=== PATIENT | female | born 1970 | race Caucasian/White ===

== ENCOUNTER 2021-07-13 11:44 | Emergency (ER) | payer OTHER, SELFPAY ==
[2021-07-13 12:06] VITALS: BP 121/74; PULSE 81; RESP 18; TEMP 36.4; O2SAT 98
--- NOTE | 2021-07-13 13:27 | ED.URI ---
HPI - URI/Sore Throat General Chief Complaint: Upper Respiratory Infection Stated Complaint: sore throat sob fever Source: patient and RN notes reviewed Mode of arrival: ambulatory History of Present Illness HPI Narrative: This is a 51-year-old female who presented to urgent care with complaints of a sore throat, cough, fatigue, shortness of breath and congestion. According to patient she was unable to smoke her cigarettes due to shortness of breath. She did not do anything at home to relieve her symptoms. She has had her symptoms since Tuesday. The patient denies CP, palpitation, extremity numbness, lightheadedness, dizziness, constipation, diarrhea, chills, or fever. Related Data Home Medications Medication Instructions Recorded Confirmed atenolol 25 mg PO BID 07/13/21 07/13/21 atorvastatin 10 mg PO DAILY 07/13/21 07/13/21 citalopram 40 mg PO DAILY 07/13/21 07/13/21 empagliflozin [Jardiance] 10 mg PO DAILY 07/13/21 07/13/21 metformin 1,000 mg PO BID 07/13/21 07/13/21 Allergies Allergy/AdvReac Type Severity Reaction Status Date / Time No Known Allergies Allergy Verified 07/13/21 12:22 Review of Systems Review of Systems: A 14 organ system Review of Systems was performed and pertinent positives included in the HPI, otherwise remaining ROS is negative. [facility] Family History Family History (Updated 07/13/21 @ 13:28 by PATO Wright-Choco) Other Family history non-contributory Exam Narrative: GENERAL: This is a well-nourished, well-developed patient, in no apparent distress. HEAD: normocephalic, atraumatic. EYES: PERRL. Sclera clear/white. Vision is grossly intact. EARS: External ears normal, auditory canals clear and without drainage, TMs normal without perforation. Hearing grossly intact. NOSE: External nose normal with no obvious nasal discharge, nares without redness, no rhinorrhea. THROAT: Mucous membranes moist, posterior pharynx clear. NECK: Neck supple, non-tender without lymphadenopathy, masses or thyromegaly. CARDIOVASCULAR: Regular rate and rhythm without murmurs, gallops, or rubs. RESPIRATORY: Clear to auscultation. Breath sounds equal bilaterally. No wheezes, rales, or rhonchi. GASTROINTESTINAL: Abdomen soft, non-tender, nondistended. Bowel sounds are active. No hepato-splenomegaly, or palpable masses. No guarding. SKIN: warm, intact with no suspicious lesions or rash, good texture and turgor. NEURO: awake, alert, and oriented to person, place and time. There were no obvious focal neurologic abnormalities. Steady gait EXTREMITIES: Normal range of motion. No edema. No calf tenderness. Negative Homans sign bilaterally. BACK: Nontender without deformity or crepitance. No flank tenderness. Course Course Emergency Course: Patient will be treated for viral syndrome with Tessalon Perles, guaifenesin, albuterol, Symbicort, and Medrol pack Vital Signs Vital signs: Vital Signs Temperature 97.6 F 07/13/21 12:06 Pulse Rate 81 07/13/21 12:06 Respiratory Rate 18 07/13/21 12:06 Blood Pressure 121/74 07/13/21 12:06 Pulse Oximetry 98 07/13/21 12:06 Temperature 97.6 F 07/13/21 12:06 Pulse Rate 81 07/13/21 12:06 Respiratory Rate 18 07/13/21 12:06 Blood Pressure 121/74 07/13/21 12:06 Pulse Oximetry 98 07/13/21 12:06 MDM - URI/Sore Throat Differential Diagnosis Differential diagnosis: Likely upper respiratory infection, sinusitis, viral infection and bronchitis Discharge Plan Discharge Clinical Impression: Viral infection Patient Disposition: Home, Self-Care Condition: Stable Instructions: Antibiotic Form, Viral Syndrome (ED) Additional Instructions: This is likely viral illness, no antibiotic is needed at this time. Treatment is aimed toward your specific symptoms. You must treat your symptoms in order to feel better while the virus runs it's course. Recommend antihistamine such as Benadryl at night time and Claritin/Zyrtec/Mary during the day Use
== END 2021-07-13 13:31 | disposition home or self-care (01) ==
PROVIDERS: Emergency Provider Nurse Practitioner; PCP Internal Medicine
DX: B34.9 Viral infection, unspecified (principal); Z20.822 Contact with and (suspected) exposure to COVID-19
CPT/HCPCS: 99213; G0463

== ENCOUNTER 2021-10-28 11:11 | Emergency (ER) | payer OTHER, SELFPAY ==
--- NOTE | 2021-10-28 11:14 | ED.URI ---
HPI - URI/Sore Throat General Chief Complaint: Upper Respiratory Infection Stated Complaint: allergies, yellow mucus out of nose Time Seen by Provider: 10/28/21 11:29 Source: patient and RN notes reviewed Mode of arrival: ambulatory Limitations: no limitations History of Present Illness HPI Narrative: 51-year-old female presents with concern for persistent cough, bilateral ear pressure, purulent nasal drainage. Reports she has a history of allergies and has started taking her antihistamine without relief. She reports she smokes a pack and half cigarettes a day. She reports coughing fits hurt her ribs. MD elicited complaint: rhinorrhea and nasal congestion Related Data Home Medications Medication Instructions Recorded Confirmed atenolol 25 mg PO BID 07/13/21 10/28/21 atorvastatin 10 mg PO DAILY 07/13/21 10/28/21 citalopram 40 mg PO DAILY 07/13/21 10/28/21 metformin 1,000 mg PO BID 07/13/21 10/28/21 cetirizine [Zyrtec] 10 mg PO DAILY 10/28/21 10/28/21 insulin glargine-lixisenatide 25 unit SUBCUT QAM 10/28/21 10/28/21 [Soliqua 100/33] Allergies Allergy/AdvReac Type Severity Reaction Status Date / Time No Known Allergies Allergy Verified 10/28/21 11:25 Review of Systems Review of Systems: CONSTITUTIONAL: Denies malaise, chills, sweats, or fever. EYES: Denies visual changes, redness, or discharge. ENT: Reports rhinorrhea, congestion, sinus pain, otalgia and sore throat. CARDIOVASCULAR: Denies chest pain, palpitations, or edema. RESPIRATORY: Reports persistent cough. Denies dyspnea. GASTROINTESTINAL: Denies abdominal pain, nausea, vomiting, diarrhea SKIN: Denies rash or itching. MUSCULOSKELETAL: Denies myalgia. NEUROLOGIC: Denies headache. All systems reviewed & are unremarkable except as noted in HPI and below PMFSH Family History Family History (Updated 07/13/21 @ 13:28 by PATO Wright-C) Other Family history non-contributory Comments At time of signature, agree with nursing past medical, surgical, social and family history. There is no relevant family history pertinent to the presenting complaint Exam Narrative: GENERAL: Well-appearing, well-nourished, and in no acute distress. HEAD: Normocephalic EYES: PERRLA, conjunctivae clear ENT: Nares clear, turbinates edematous and erythematous. Mucous membranes moist. TM pearly munoz with dull light reflex bilaterally; no tragal tenderness. Oropharynx not erythematous without lesions. Tonsils not enlarged and without exudate, no drooling, no hoarseness, no trismus, uvula midline. NECK: Supple. No lymphadenopathy CHEST: Expiratory wheeze throughout, breath sounds equal. No rhonchi, rales, or stridor. No respiratory distress, speaks in full sentences. HEART: Regular rate and rhythm. No murmur heard. SKIN: Warm, dry, no rash. NEURO: Alert and oriented x3. PSYCH: Normal mood and affect Course Course Emergency Course: Patient is aware of diagnosis, understands and agrees to treatment plan. Anticipatory guidance given. Patient agrees to follow-up as directed and is aware of reasons to seek care at the emergency department. Portions of this record may have been created with voice recognition software Level of Care: Express Care Visit Vital Signs Vital signs: Vital Signs Temperature 98.2 F 10/28/21 11:18 Pulse Rate 80 10/28/21 11:18 Respiratory Rate 16 10/28/21 11:18 Blood Pressure 124/65 10/28/21 11:18 Pulse Oximetry 98 10/28/21 11:18 Temperature 98.2 F 10/28/21 11:18 Pulse Rate 80 10/28/21 11:18 Respiratory Rate 16 10/28/21 11:18 Blood Pressure 124/65 10/28/21 11:18 Pulse Oximetry 98 10/28/21 11:18 Reviewed. MDM - URI/Sore Throat MDM Narrative Medical decision making narrative: Differential diagnosis considered: Schmidt virus, strep pharyngitis, allergic rhinitis, upper respiratory tract infection, sinusitis, rhinosinusitis, nasopharyngitis. viral pharyngitis, otitis media, otitis externa, pneumonia, bronchitis, v
[2021-10-28 11:18] VITALS: BP 124/65; PULSE 80; RESP 16; TEMP 36.8; O2SAT 98
== END 2021-10-28 11:51 | disposition home or self-care (01) ==
PROVIDERS: Emergency Provider Nurse Practitioner
DX: J32.9 Chronic sinusitis, unspecified (principal); J40 Bronchitis, not specified as acute or chronic; E78.00 Pure hypercholesterolemia, unspecified; K21.9 Gastro-esophageal reflux disease without esophagitis; E11.22 Type 2 diabetes mellitus with diabetic chronic kidney disease; N18.30 Chronic kidney disease, stage 3 unspecified; Z79.4 Long term (current) use of insulin; Z79.84 Long term (current) use of oral hypoglycemic drugs; F41.9 Anxiety disorder, unspecified; F32.A Depression, unspecified
CPT/HCPCS: 99213; G0463

== ENCOUNTER 2022-02-28 08:51 | Emergency (ER) | payer BC, SELFPAY ==
[2022-02-28 09:02] VITALS: BP 121/76; PULSE 77; RESP 18; TEMP 36.7; O2SAT 98
--- NOTE | 2022-02-28 09:37 | ED.GENADULT ---
HPI - General Adult General Chief complaint: Skin/Abscess/Foreign Body Stated complaint: Flu Symptoms Source: patient Mode of arrival: ambulatory Limitations: no limitations History of Present Illness HPI narrative: Patient presents for evaluation of sick symptoms. Symptoms included chills, body aches, fatigue, nonproductive cough and dyspnea on exertion. Symptom onset yesterday. She took a home COVID test today which was positive. She has received her COVID vaccination symptoms. No fever, nausea or vomiting. She smokes 1-1/2 packs/day. She has underlying history of diabetes and chronic kidney disease. Related Data Home Medications Medication Instructions Recorded Confirmed atenolol 25 mg tablet 25 mg PO BID 07/13/21 02/28/22 atorvastatin 10 mg tablet 10 mg PO DAILY 07/13/21 02/28/22 citalopram 40 mg tablet 40 mg PO DAILY 07/13/21 02/28/22 metformin 1,000 mg tablet 1,000 mg PO BID 07/13/21 02/28/22 cetirizine 10 mg tablet (Zyrtec) 10 mg PO DAILY 10/28/21 02/28/22 insulin glargine 100 25 unit subcut QAM 10/28/21 02/28/22 unit-lixisenatide 33 mcg/mL subcutaneous pen (Soliqua 100/33) Allergies Allergy/AdvReac Type Severity Reaction Status Date / Time No Known Allergies Allergy Verified 02/28/22 09:08 Review of Systems Review of Systems: CONSTITUTIONAL: Reports chills and fatigue Denies fever or sweats. EYES: Denies visual changes, redness, or discharge. ENT: Denies rhinorrhea, congestion, sore throat, or otalgia. CARDIOVASCULAR: Denies chest pain, palpitations, or edema. RESPIRATORY: Reports nonproductive cough and dyspnea on exertion GASTROINTESTINAL: Denies abdominal pain, nausea, vomiting, or diarrhea. GENITOURINARY: Denies dysuria or hematuria. SKIN: Denies rash or itching. MUSCULOSKELETAL: Reports body aches. NEUROLOGIC: Denies headache, numbness, dizziness, or weakness. PSYCHIATRIC: Denies anxiety or depression. [facility], [facility] Past Medical History Medical History Chronic kidney disease Diabetes Surgical History Surgical History No pertinent past surgical history Family History Family History Other Family history non-contributory Social History Social History Smoking packs per day: 1.5 Smoking cigarettes per day: 30.0 Smoking status: Current every day smoker Living arrangements: with family Gender identity (if verbalized by the patient): Female Sexual Orientation (if Verbalized by the Patient): Straight or Heterosexual Spiritual care concerns: No Exam Narrative: GENERAL: Well-appearing, well-nourished, and in no acute distress. HEAD: Normocephalic, atraumatic. EYES: PERRLA and EOMI. ENT: Nares clear, no rhinorrhea or epistaxis. Mucous membranes moist. Oropharynx without tonsillar hypertrophy exudate or other lesions. Bilateral TMs pearly munoz nonbulging NECK: Supple. No adenopathy or masses. No carotid bruits or JVD CHEST: Clear to auscultation. No respiratory distress. No wheezes rales or rhonchi HEART: Regular rate and rhythm. No murmur heard. Normal peripheral pulses. ABDOMEN: Soft, nontender, nondistended, normal active bowel sounds. EXTREMITIES: Normal range of motion. No edema. SKIN: Warm, dry, no rash. NEURO: No focal deficits. Alert and oriented x3. PSYCH: Normal mood and affect. Course Course Emergency Course: This is a 52-year-old female that presented for evaluation of sick symptoms with a recent positive COVID test. 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 Testing here was positive. Unfortunately I do not know her kidney function but she has underlying kidney disease. She has labs available at home and will call me with her results we can determine whether she can go on paxlovid. She should poly
== END 2022-02-28 09:50 | disposition home or self-care (01) ==
PROVIDERS: Emergency Provider Nurse Practitioner; PCP Internal Medicine
DX: U07.1 COVID-19 (principal); F17.210 Nicotine dependence, cigarettes, uncomplicated; E11.22 Type 2 diabetes mellitus with diabetic chronic kidney disease; N18.9 Chronic kidney disease, unspecified; Z79.4 Long term (current) use of insulin; Z79.84 Long term (current) use of oral hypoglycemic drugs
CPT/HCPCS: 87426; 99213; C9803; G0463

== ENCOUNTER 2022-06-16 13:57 | Emergency (ER) | payer BC, SELFPAY ==
[2022-06-16 14:03] VITALS: BP 114/67; PULSE 81; RESP 16; TEMP 37.4; O2SAT 100
--- NOTE | 2022-06-16 14:32 | ED.URI ---
HPI - URI/Sore Throat General Chief Complaint: Upper Respiratory Infection Stated Complaint: Cough/Shortness of Breath Time Seen by Provider: 06/16/22 14:32 Source: patient and RN notes reviewed Mode of arrival: ambulatory Limitations: no limitations History of Present Illness HPI Narrative: 52 y/o female with hx DM presented for c/o headache, body aches, sinus pressure/congestion, cough, fever/chills; onset 5 days. Endorses sob. Cough is productive green sputum. Requesting flu test. Last covid positive 01/2022. Smokes 1.5PPD. MD elicited complaint: cough Related Data Home Medications Medication Instructions Recorded Confirmed atenolol 25 mg tablet 25 mg PO BID 07/13/21 06/16/22 atorvastatin 10 mg tablet 10 mg PO DAILY 07/13/21 06/16/22 citalopram 40 mg tablet 40 mg PO DAILY 07/13/21 06/16/22 metformin 1,000 mg tablet 1,000 mg PO BID 07/13/21 06/16/22 cetirizine 10 mg tablet (Zyrtec) 10 mg PO DAILY 10/28/21 06/16/22 insulin glargine 100 25 unit subcut QAM 10/28/21 06/16/22 unit-lixisenatide 33 mcg/mL subcutaneous pen (Soliqua 100/33) bupropion HCl (smoking deter) 150 150 mg PO DAILY 06/16/22 06/16/22 mg tablet,12 hr sustained-release(smoking deterrent) Allergies Allergy/AdvReac Type Severity Reaction Status Date / Time No Known Allergies Allergy Verified 06/16/22 14:10 Review of Systems Review of Systems: ROS per HPI [facility] Past Medical History Medical History Chronic kidney disease Diabetes Surgical History Surgical History No pertinent past surgical history Family History Family History Other Family history non-contributory Social History Social History Smoking packs per day: 1.5 Smoking cigarettes per day: 30.0 Smoking status: Current every day smoker Gender identity (if verbalized by the patient): Female Sexual Orientation (if Verbalized by the Patient): Straight or Heterosexual Spiritual care concerns: No Exam Narrative: GENERAL: Ill-appearing, nontoxic EYES: PERRLA, conjunctivae clear ENT: Mucous membranes moist. TMs pearly munoz with dull light reflex bilaterally; no tragal tenderness. Oropharynx erythematous without lesions or exudate, no drooling, no hoarseness, no trismus, uvula midline. CHEST: Clear to auscultation, breath sounds equal. No wheezing, rhonchi, rales, or stridor. No respiratory distress, speaks in full sentences. HEART: Regular rate and rhythm. No murmur heard. SKIN: Warm, dry, no rash. NEURO: Alert and oriented x3. PSYCH: Normal mood and affect Course Course Emergency Course: Patient is aware of diagnosis, understands and agrees to treatment plan. Anticipatory guidance given. Patient agrees to follow-up as directed and is aware of reasons to seek care at the emergency department. Portions of this record may have been created with voice recognition software Level of Care: Express Care Visit Vital Signs Vital signs: Vital Signs Temperature 99.3 F 06/16/22 14:03 Pulse Rate 81 06/16/22 14:03 Respiratory Rate 16 06/16/22 14:03 Blood Pressure 114/67 06/16/22 14:03 Pulse Oximetry 100 06/16/22 14:03 Oxygen Delivery Room Air 06/16/22 14:03 Temperature 99.3 F 06/16/22 14:03 Pulse Rate 81 06/16/22 14:03 Respiratory Rate 16 06/16/22 14:03 Blood Pressure 114/67 06/16/22 14:03 Pulse Oximetry 100 06/16/22 14:03 Oxygen Delivery Room Air 06/16/22 14:03 reviewed MDM - URI/Sore Throat MDM Narrative Medical decision making narrative: flu negative. Result review patient. Advised supportive measures and signs/symptoms to go to the ER. Pt is appropriate for outpt treatment and f/u. Differential Diagnosis Differential diagnosis: Likely upper respiratory infection, sinusitis a
== END 2022-06-16 14:40 | disposition home or self-care (01) ==
PROVIDERS: Emergency Provider Nurse Practitioner Family; PCP Internal Medicine
DX: B34.9 Viral infection, unspecified (principal); F17.210 Nicotine dependence, cigarettes, uncomplicated; E11.22 Type 2 diabetes mellitus with diabetic chronic kidney disease; N18.9 Chronic kidney disease, unspecified
CPT/HCPCS: 87804; 99213; G0463